=== PATIENT | male | born 1980 | race Caucasian/White ===

== ENCOUNTER 2019-02-16 14:39 | Inpatient (IN) | payer OTHER ==
[~2019-02-16] VITALS: Ht 162.6 cm; Wt 75.3 kg
[2019-02-16 14:39] VITALS: BP_SYST 130
[2019-02-16] MEDS ORDERED: MORPHINE SULFATE 10 MG/ML VIAL ONE (14:57)
[2019-02-16] MEDS ORDERED: fentaNYL CITRATE/PF 100 MCG/2 ML AMP IVP ONE (15:15)
[2019-02-16] MEDS ORDERED: DIPH-TET-PERTUS Vaccine 0.5 ML VIAL (ADACEL) I.M. ONE (15:15)
[2019-02-16] MEDS ORDERED: MORPHINE 4 MG/ML INJ. SYRINGE IVP ONE (15:15)
[2019-02-16] MEDS ORDERED: KETAMINE 30 MG/3 ML SYRINGE 30 MG in NS 100 ML IV ONE (15:15)
[2019-02-16] MEDS ORDERED: KETAMINE 30 MG/3 ML SYRINGE ONE (15:20)
[2019-02-16 15:24] LABS: BASOPHILS # (AUTO) 0.1 K/uL (0.0-0.2); BASOPHILS % (AUTO) 0.8 % (0.0-2.0); EOSINOPHILS # (AUTO) 0.2 K/uL (0.0-0.4); EOSINOPHILS % (AUTO) 1.7 % (0.0-4.0); HEMATOCRIT 40.9 % (36-54); HEMOGLOBIN 13.6 g/dL (14.0-18.0); LYMPHOCYTES # (AUTO) 3.8 K/uL (1.0-5.5); LYMPHOCYTES % (AUTO) 36.7 % (20.5-51.5); MEAN CORPUSCULAR HEMOGLOBIN 29 pg (27-31); MEAN CORPUSCULAR HGB CONC 33 % (32-36); MEAN CORPUSCULAR VOLUME 86 fL (79.0-98.0); MONOCYTES # (AUTO) 0.9 K/uL (0.0-1.0); MONOCYTES % (AUTO) 8.3 % (1.7-9.3); NEUTROPHILS # (AUTO) 5.5 K/uL (1.8-7.7); NEUTROPHILS % (AUTO) 52.5 % (40.0-70.0); PLATELET COUNT (AUTO) 229 K/uL (130-430); RED BLOOD CELL COUNT(AUTO) 4.78 MIL/uL (4.2-6.2); RED CELL DISTRIBUTION WIDTH 13.7 % (9.0-15.0); WHITE BLOOD COUNT (AUTO) 10.5 K/uL (4.8-10.8)
[2019-02-16] MEDS ORDERED: HYDROmorphone 2 MG/ML VIAL IVP ONE ×2 (15:30→16:15)
[2019-02-16 15:36] LABS: PROTHROMBIN TIME 10.4 SECS (9.5-12.5)
[2019-02-16 15:42] LABS: CALCIUM 8.9 mg/dL (8.4-11.0); CREATININE 1.02 mg/dL (0.55-1.30)
[2019-02-16 15:46] LABS: ALBUMIN 3.4 g/dL (3.4-4.8); TOTAL BILIRUBIN 0.2 mg/dL (0.0-1.0)
[2019-02-16 15:54] LABS: POTASSIUM 2.9 mmol/L (3.5-5.1)
[2019-02-16] MEDS ORDERED: MIDAZOLAM HCL 5 MG/5 ML VIAL IVP ONE (16:00)
[2019-02-16 19:17] VITALS: BP_SYST 140
[2019-02-16 19:47] VITALS: BP_SYST 140
[2019-02-16] MEDS: D5/0.45 NS 1,000 ML IV SCH (20:02)
[2019-02-16 20:10] VITALS: BP_SYST 140
[2019-02-16] MEDS ORDERED: HYDROcodone/ACETAMIN 5-325 MG TAB (NORCO/ VICODIN) PO PRN (21:45)
[2019-02-16] MEDS ORDERED: ONDANSETRON HCL 4 MG/2 ML VIAL IVP PRN (21:45)
[2019-02-16] MEDS ORDERED: LORazepam 2 MG/ML VIAL IVP PRN (21:45)
[2019-02-16] MEDS ORDERED: ACETAMINOPHEN 325 MG TABLET PO PRN (21:45)
[2019-02-16] MEDS ORDERED: NORMAL SALINE 5 ML DISP.SYRIN IVF SCH (22:00)
[2019-02-16] MEDS: HYDROcodone/ACETAMIN 10-325 MG TAB PO PRN (22:01)
[2019-02-16 22:08] LABS: BILIRUBIN,URINE NEGATIVE (NEGATIVE); BLOOD, URINE NEGATIVE (NEGATIVE); CLARITY/URINE CLEAR (CLEAR); COLOR,URINE YELLOW (YELLOW); GLUCOSE,URINE NEGATIVE (NEGATIVE); KETONES,URINE NEGATIVE (NEGATIVE); LEUKOCYTE ESTERASE ,URINE NEGATIVE (NEGATIVE); NITRITE, URINE NEGATIVE (NEGATIVE); PROTEIN URINE NEGATIVE (NEGATIVE); UROBILINOGEN,URINE 0.2 (0.2-1.0)
[2019-02-16] MEDS ORDERED: POTASSIUM CHLORIDE 20 MEQ TAB.PRT.SR PO SCH (22:30)
[2019-02-16] MEDS: NORMAL SALINE 5 ML DISP.SYRIN IVF SCH (22:54)
[2019-02-17 00:29] VITALS: BP_SYST 139
[2019-02-17] MEDS: MORPHINE 2 MG/ML INJ. SYRINGE IVP PRN ×2 (00:30→05:44)
[2019-02-17] MEDS: D5/0.45 NS 1,000 ML IV SCH ×4 (01:55→23:26)
[2019-02-17] MEDS: HYDROcodone/ACETAMIN 10-325 MG TAB PO PRN ×3 (04:08→20:38)
[2019-02-17] MEDS: NORMAL SALINE 5 ML DISP.SYRIN IVF SCH ×3 (05:47→21:24)
[2019-02-17 07:52] LABS: BASOPHILS % (AUTO) 0.6 % (0.0-2.0); EOSINOPHILS # (AUTO) 0.1 K/uL (0.0-0.4); EOSINOPHILS % (AUTO) 0.8 % (0.0-4.0); HEMATOCRIT 40.7 % (36-54); HEMOGLOBIN 13.5 g/dL (14.0-18.0); LYMPHOCYTES # (AUTO) 1.5 K/uL (1.0-5.5); LYMPHOCYTES % (AUTO) 19.2 % (20.5-51.5); MEAN CORPUSCULAR HEMOGLOBIN 29 pg (27-31); MEAN CORPUSCULAR HGB CONC 33 % (32-36); MEAN CORPUSCULAR VOLUME 86 fL (79.0-98.0); MONOCYTES # (AUTO) 1.4 K/uL (0.0-1.0); MONOCYTES % (AUTO) 17.8 % (1.7-9.3); NEUTROPHILS # (AUTO) 4.7 K/uL (1.8-7.7); NEUTROPHILS % (AUTO) 61.6 % (40.0-70.0); PLATELET COUNT (AUTO) 213 K/uL (130-430); RED BLOOD CELL COUNT(AUTO) 4.72 MIL/uL (4.2-6.2); RED CELL DISTRIBUTION WIDTH 14.1 % (9.0-15.0); WHITE BLOOD COUNT (AUTO) 7.6 K/uL (4.8-10.8)
[2019-02-17 08:00] VITALS: BP_SYST 126
[2019-02-17 08:04] LABS: CALCIUM 8.6 mg/dL (8.4-11.0); CREATININE 0.74 mg/dL (0.55-1.30); POTASSIUM 4.3 mmol/L (3.5-5.1)
[2019-02-17 11:25] VITALS: BP_SYST 125
[2019-02-17] MEDS ORDERED: OXYCODONE/ACETAMINOPHEN *10*mg/325 mg TABLET PO PRN (11:30)
[2019-02-17] MEDS: HYDROmorphone 2 MG/ML VIAL IVP PRN ×2 (12:05→23:33)
[2019-02-17 15:45] VITALS: BP_SYST 127
[2019-02-17 20:33] VITALS: BP_SYST 128
[2019-02-18 00:24] VITALS: BP_SYST 130
[2019-02-18] MEDS: HYDROmorphone 2 MG/ML VIAL IVP PRN ×2 (04:18→18:54)
[2019-02-18] MEDS: NORMAL SALINE 5 ML DISP.SYRIN IVF SCH ×3 (05:20→21:43)
[2019-02-18 06:30] LABS: BASOPHILS % (AUTO) 0.4 % (0.0-2.0); EOSINOPHILS # (AUTO) 0.2 K/uL (0.0-0.4); EOSINOPHILS % (AUTO) 1.7 % (0.0-4.0); HEMATOCRIT 39.8 % (36-54); HEMOGLOBIN 13.5 g/dL (14.0-18.0); LYMPHOCYTES # (AUTO) 1.5 K/uL (1.0-5.5); LYMPHOCYTES % (AUTO) 17.2 % (20.5-51.5); MEAN CORPUSCULAR HEMOGLOBIN 29 pg (27-31); MEAN CORPUSCULAR HGB CONC 34 % (32-36); MEAN CORPUSCULAR VOLUME 86 fL (79.0-98.0); MONOCYTES # (AUTO) 1.3 K/uL (0.0-1.0); MONOCYTES % (AUTO) 14.5 % (1.7-9.3); NEUTROPHILS # (AUTO) 5.9 K/uL (1.8-7.7); NEUTROPHILS % (AUTO) 66.2 % (40.0-70.0); PLATELET COUNT (AUTO) 202 K/uL (130-430); RED BLOOD CELL COUNT(AUTO) 4.62 MIL/uL (4.2-6.2); RED CELL DISTRIBUTION WIDTH 13.8 % (9.0-15.0); WHITE BLOOD COUNT (AUTO) 8.9 K/uL (4.8-10.8)
[2019-02-18 07:31] LABS: CALCIUM 8.7 mg/dL (8.4-11.0); CREATININE 0.72 mg/dL (0.55-1.30); POTASSIUM 4.1 mmol/L (3.5-5.1)
[2019-02-18 08:03] VITALS: BP_SYST 143
[2019-02-18] MEDS: HYDROcodone/ACETAMIN 10-325 MG TAB PO PRN ×2 (09:18→15:31)
[2019-02-18] MEDS: D5/0.45 NS 1,000 ML IV SCH ×2 (09:19→20:23)
[2019-02-18 12:18] VITALS: BP_SYST 141
[2019-02-18 16:03] VITALS: BP_SYST 140
[2019-02-18 20:20] VITALS: BP_SYST 138
[2019-02-19] VITALS (7 sets, daily range): BP systolic 128–137
[2019-02-19] MEDS: HYDROcodone/ACETAMIN 10-325 MG TAB PO PRN ×3 (03:08→13:59)
[2019-02-19] MEDS: NORMAL SALINE 5 ML DISP.SYRIN IVF SCH ×3 (05:01→21:01)
[2019-02-19] MEDS: D5/0.45 NS 1,000 ML IV SCH ×2 (05:31→14:45)
[2019-02-19 06:32] LABS: BASOPHILS % (AUTO) 0.4 % (0.0-2.0); EOSINOPHILS # (AUTO) 0.2 K/uL (0.0-0.4); EOSINOPHILS % (AUTO) 2.7 % (0.0-4.0); HEMATOCRIT 39.1 % (36-54); HEMOGLOBIN 13.1 g/dL (14.0-18.0); LYMPHOCYTES # (AUTO) 1.7 K/uL (1.0-5.5); LYMPHOCYTES % (AUTO) 20.5 % (20.5-51.5); MEAN CORPUSCULAR HEMOGLOBIN 29 pg (27-31); MEAN CORPUSCULAR HGB CONC 34 % (32-36); MEAN CORPUSCULAR VOLUME 86 fL (79.0-98.0); MONOCYTES # (AUTO) 1.2 K/uL (0.0-1.0); NEUTROPHILS # (AUTO) 5.2 K/uL (1.8-7.7); NEUTROPHILS % (AUTO) 62.4 % (40.0-70.0); PLATELET COUNT (AUTO) 211 K/uL (130-430); RED BLOOD CELL COUNT(AUTO) 4.56 MIL/uL (4.2-6.2); RED CELL DISTRIBUTION WIDTH 13.8 % (9.0-15.0); WHITE BLOOD COUNT (AUTO) 8.3 K/uL (4.8-10.8)
[2019-02-19 07:06] LABS: CALCIUM 8.6 mg/dL (8.4-11.0); CREATININE 0.77 mg/dL (0.55-1.30); POTASSIUM 4.1 mmol/L (3.5-5.1)
[2019-02-19] MEDS ORDERED: HYDR-3925 PO (10:02)
[2019-02-19] MEDS ORDERED: PERC10 PO (10:02)
[2019-02-19] MEDS: HYDROmorphone 2 MG/ML VIAL IVP PRN (15:03)
[2019-02-20 00:26] VITALS: BP_SYST 111
[2019-02-20] MEDS: D5/0.45 NS 1,000 ML IV SCH ×3 (01:26→22:48)
[2019-02-20] MEDS: NORMAL SALINE 5 ML DISP.SYRIN IVF SCH ×3 (05:11→22:49)
[2019-02-20 08:07] VITALS: BP_SYST 116
[2019-02-20 12:19] VITALS: BP_SYST 127
[2019-02-20 16:03] VITALS: BP_SYST 123
[2019-02-20 20:00] VITALS: BP_SYST 120
[2019-02-21 01:10] VITALS: BP_SYST 108
[2019-02-21] MEDS: D5/0.45 NS 1,000 ML IV SCH (05:03)
[2019-02-21] MEDS: NORMAL SALINE 5 ML DISP.SYRIN IVF SCH ×2 (05:03→14:00)
[2019-02-21 06:23] LABS: BASOPHILS % (AUTO) 0.6 % (0.0-2.0); EOSINOPHILS # (AUTO) 0.3 K/uL (0.0-0.4); EOSINOPHILS % (AUTO) 4.6 % (0.0-4.0); HEMATOCRIT 37.9 % (36-54); HEMOGLOBIN 12.6 g/dL (14.0-18.0); LYMPHOCYTES # (AUTO) 1.2 K/uL (1.0-5.5); LYMPHOCYTES % (AUTO) 17.6 % (20.5-51.5); MEAN CORPUSCULAR HEMOGLOBIN 29 pg (27-31); MEAN CORPUSCULAR HGB CONC 33 % (32-36); MEAN CORPUSCULAR VOLUME 86 fL (79.0-98.0); MONOCYTES % (AUTO) 14.6 % (1.7-9.3); NEUTROPHILS # (AUTO) 4.4 K/uL (1.8-7.7); NEUTROPHILS % (AUTO) 62.6 % (40.0-70.0); PLATELET COUNT (AUTO) 245 K/uL (130-430); RED BLOOD CELL COUNT(AUTO) 4.41 MIL/uL (4.2-6.2); RED CELL DISTRIBUTION WIDTH 13.5 % (9.0-15.0); WHITE BLOOD COUNT (AUTO) 7.1 K/uL (4.8-10.8)
[2019-02-21 06:46] LABS: CALCIUM 8.7 mg/dL (8.4-11.0); CREATININE 0.69 mg/dL (0.55-1.30); POTASSIUM 3.9 mmol/L (3.5-5.1)
[2019-02-21 08:09] VITALS: BP_SYST 119
[2019-02-21] MEDS: HYDROcodone/ACETAMIN 10-325 MG TAB PO PRN (11:12)
[2019-02-21 11:32] VITALS: BP_SYST 117
[2019-02-21 12:43] VITALS: BP_SYST 117
== END 2019-02-21 15:30 | disposition home health service (06) | DRG 563 ==
LOC: SED 14:39 → SMU 16:26
PROVIDERS: ADMIT Preventive Medicine Preventive Medicine/Occupational Environmental Medicine; ATTEND Preventive Medicine Preventive Medicine/Occupational Environmental Medicine
PROC: 0PSGXZZ Reposition Left Humeral Shaft, External Approach (ICD-10-PCS; principal; 2019-02-16)
DX: S82.145A Nondisplaced bicondylar fracture of left tibia, initial encounter for closed fracture (principal); E87.1 Hypo-osmolality and hyponatremia; S92.345A Nondisplaced fracture of fourth metatarsal bone, left foot, initial encounter for closed fracture; S92.355A Nondisplaced fracture of fifth metatarsal bone, left foot, initial encounter for closed fracture; E87.5 Hyperkalemia; D16.02 Benign neoplasm of scapula and long bones of left upper limb; R73.9 Hyperglycemia, unspecified; S53.125A Posterior dislocation of left ulnohumeral joint, initial encounter; X58.XXXA Exposure to other specified factors, initial encounter; Y93.89 Activity, other specified; Y92.69 Other specified industrial and construction area as the place of occurrence of the external cause; Z87.81 Personal history of (healed) traumatic fracture; Q78.6 Multiple congenital exostoses; Y99.8 Other external cause status
CPT/HCPCS: 36415; 71045; 73060-TC; 73090; 73552; 73590-TC; 80048; 80053; 81003; 85025; 85610-TC; 85730-TC; 86886; 86900; 86901; 90715; 93005; 94010; 96374; 96375; 97110-GP; 97112-GP; 97116-GP; 97163; 97530-GP; 99285; J1170; J2250; J2270; J2405; J3010; J7030